=== PATIENT | female | born 1940 | race African-American/Black ===

== ENCOUNTER 2016-07-26 21:13 | Emergency (ER) | payer OTHER ==
[~2016-07-26] VITALS: Ht 165.1 cm; Wt 81.6 kg
[2016-07-26 21:15] VITALS: BP_SYST 142
[2016-07-26] MEDS ORDERED: GASTROGRAFIN 120 ML ONE (22:04)
[2016-07-26 22:31] VITALS: BP_SYST 143
== END 2016-07-26 22:31 | disposition home or self-care (01) ==
LOC: SED 21:13
DX: K94.23 Gastrostomy malfunction (principal); N28.9 Disorder of kidney and ureter, unspecified; Z88.2 Allergy status to sulfonamides; Z88.5 Allergy status to narcotic agent; Z88.8 Allergy status to other drugs, medicaments and biological substances
CPT/HCPCS: 43760; 74240; 99284; Q9963

== ENCOUNTER 2016-07-29 21:50 | Inpatient (IN) | payer OTHER ==
[~2016-07-29] VITALS: Ht 165.1 cm; Wt 76.7 kg
[2016-07-29 21:50] VITALS: BP_SYST 105
--- NOTE | 2016-07-29 21:50 | NUR ---
MD at beside examining patient.
--- NOTE | 2016-07-29 21:50 | NUR ---
Patient to ER bed 6 to gown for evaluation. Side rails up. Report given to CONNER HOFFMANN.
--- NOTE | 2016-07-29 21:50 | NUR ---
Pt brought in to ER by ambulance via gurney from [facility]. Pt Hgb 7.0. Pt is AOx1 and able to follow verbal command. Pt has dialysis shunt to [facility]. No active bleeding noted. Denies any pain or discomfort at this time. No acute distress noted. Will continue to monitor.
[2016-07-29 22:26] LABS: BASOPHILS % (AUTO) 0.1 % (0.0-2.0); EOSINOPHILS # (AUTO) 0.2 K/uL (0.0-0.4); EOSINOPHILS % (AUTO) 4.7 % (0.0-4.0); LYMPHOCYTES # (AUTO) 0.6 K/uL (1.0-5.5); LYMPHOCYTES % (AUTO) 12.8 % (20.5-51.5); MEAN CORPUSCULAR HEMOGLOBIN 28 pg (27-31); MEAN CORPUSCULAR HGB CONC 33 % (32-36); MEAN CORPUSCULAR VOLUME 85 fL (79.0-98.0); MONOCYTES # (AUTO) 0.6 K/uL (0.0-1.0); MONOCYTES % (AUTO) 13.6 % (1.7-9.3); NEUTROPHILS # (AUTO) 3.2 K/uL (1.8-7.7); NEUTROPHILS % (AUTO) 68.8 % (40.0-70.0); PLATELET COUNT (AUTO) 216 K/uL (130-430); RED BLOOD CELL COUNT(AUTO) 2.53 MIL/uL (4.2-6.2); RED CELL DISTRIBUTION WIDTH 18.7 % (9.0-15.0); WHITE BLOOD COUNT (AUTO) 4.6 K/uL (4.8-10.8)
[2016-07-29 22:30] LABS: HEMATOCRIT 21.5 % (36-48)
[2016-07-29] MEDS ORDERED: PHEN100O4 PO (22:34)
[2016-07-29] MEDS ORDERED: SENN8.8S12 GT (22:34)
[2016-07-29] MEDS ORDERED: LORA2VIA31 (22:34)
[2016-07-29] MEDS ORDERED: PHO667 GT (22:34)
[2016-07-29] MEDS ORDERED: LANS30CA56 PO (22:34)
[2016-07-29] MEDS ORDERED: LEVE500T77 PO (22:34)
[2016-07-29] MEDS ORDERED: LEVE500S PO (22:34)
[2016-07-29 22:45] LABS: CALCIUM 9.3 mg/dL (8.4-11.0); CHLORIDE 98 mmol/L (98-107); CREATININE 3.76 mg/dL (0.55-1.30); GLUCOSE 103 mg/dL (70-99); POTASSIUM 3.7 mmol/L (3.5-5.1); SODIUM SERUM 137 mmol/L (136-145); UREA NITROGEN, BLOOD 24 mg/dL (8-21)
[2016-07-29 22:48] LABS: ANION GAP < 3 (5-15); PROTHROMBIN TIME 10.8 SECS (9.5-12.5)
[2016-07-29 22:50] LABS: ALANINE AMINOTRANSFERASE 18 U/L (12-78); ALBUMIN 2.3 g/dL (3.4-4.8); ASPARTATE AMINOTRANSFERASE 27 U/L (10-37); CREATINE KINASE, TOTAL 49 U/L (26-192); SALICYLATE 2 mg/dL (3-30); TOTAL BILIRUBIN 0.3 mg/dL (0.0-1.0); TOTAL PROTEIN, SERUM 7.5 g/dL (6.4-8.3)
--- NOTE | 2016-07-29 22:50 | NUR ---
Medication reconciliation completed with information provided by Patient facility. Any prior medication reconciliation on file was reviewed and corrected.
[2016-07-29 22:53] LABS: ALCOHOL, BLOOD < 3 mg/dL (<10)
[2016-07-29 23:21] LABS: BILIRUBIN,URINE NEGATIVE (NEGATIVE); BLOOD, URINE NEGATIVE (NEGATIVE); CLARITY/URINE SL HAZY (CLEAR); COLOR,URINE YELLOW (YELLOW); GLUCOSE,URINE NEGATIVE (NEGATIVE); KETONES,URINE NEGATIVE (NEGATIVE); LEUKOCYTE ESTERASE ,URINE NEGATIVE (NEGATIVE); NITRITE, URINE NEGATIVE (NEGATIVE); PROTEIN URINE 1+ (NEGATIVE); UROBILINOGEN,URINE 0.2 (0.2-1.0)
[2016-07-29 23:39] VITALS: BP_SYST 115
--- NOTE | 2016-07-29 23:39 | NUR ---
Admission Note Received patient from ER with diagnosis of SEVERE ANEMIA. Initial Plan of Care discussed-patient verbalized understanding. Family at bedside. Oriented to room, call light, pain management and safety.
--- NOTE | 2016-07-29 23:39 | NUR ---
Initial note A/O x 0, no SOB, no chest pain, no grimacing. Skin warm to touch. IV at L hand/wrist #22, patent. One wound at L buttock. GT at ABD, dressing clean and dry. Will start GTF later. AV shunt at R upper arm. Thrills and bruits present. Blood transfusion has been ordered. Type and screen pending. +2 radial and +1 pedal pulses palpated. Call light within reach, bed at lowest position, bed alarm on, will continue to monitor patient. Addendum: 07/30/16 at 0042 by Zachary Mckeon RN Assessed GT residual, 0 ml. GFT not ready yet at this time, will give when available.
[2016-07-29 23:45] LABS: BACTERIA,URINE FEW /HPF (None Seen); MUCUS,URINE None Seen /LPF (None Seen); RBC,URINE 0-3 /HPF (0-3); WBC,URINE 0-3 /HPF (0-3)
--- NOTE | 2016-07-29 23:50 | NUR ---
Patient will be admitted to care of Dr. Steward. Admitted to Med/surg unit. Will go to room 130A. Belongings list completed. Summary report printed. Report will be given at bedside.
--- NOTE | 2016-07-30 00:30 | NUR ---
Called LAB, blood is not ready yet.
--- NOTE | 2016-07-30 00:40 | NUR ---
CONSULT; CONSULT CALLED FOR DR. MARYA MOORE I SPOKE WITH GLORIA CEDENO CONSULT ENTERED BY: DR. MONA EMERSON I CALLED [phone]
--- NOTE | 2016-07-30 02:04 | NUR ---
Rounds Sleeping in bed. No SOB, no chest pain, no grimacing. Skin warm to touch. IV at L hand/wrist. Patent. Blood transfusion not ready yet. Started GTF now. No residual at this time. HOB > 30-45 degrees. Bed at lowest position, bed alarm on, will continue to monitor patient.
[2016-07-30 03:57] VITALS: BP_SYST 105
--- NOTE | 2016-07-30 04:08 | NUR ---
Rounds Sleeping/resting in bed. No SOB, no chest pain, no grimacing. Skin warm to touch. IV at L hand/wrist, patent. Blood transfusion not ready yet. GTF ongoing. HOB > 30-45 degrees. Bed at lowest position, bed alarm on, will continue to monitor patient.
[2016-07-30 04:25] VITALS: BP_SYST 105
--- NOTE | 2016-07-30 06:25 | NUR ---
Called and spoke son (Kayode Olguin) regarding blood transfusion consent. Verbal consent obtained from son. Susannah PRIETO witness.
--- NOTE | 2016-07-30 06:46 | NUR ---
Closing note Resting in bed, no SOB, no chest pain, no grimacing. Skin warm to touch, flushed 75 ml water, 0 residual. Seizure precaution applied, fall precaution applied, aspiration precaution, applied. Will give report to incoming nurse regarding patient condition, HD, and blood transfusion. Addendum: 07/30/16 at 0655 by Zachary Mckeon RN oral care provided.
[2016-07-30 07:30] VITALS: BP_SYST 117
--- NOTE | 2016-07-30 07:30 | NUR ---
AM NOTES: Received patient alert, awake, orientex2, denies pain and discomfort. informed about the POC. vital sign stable, afebrile. iv access at left wrist #20 saline lock. mouth dry and crusty. oral care rendered. turn and reposition for comfort. g-tube infusing well, no residual noted. hob elevated to prevent aspiration. sz pad placed.call light within reach. sacral excoriation, z-guard in placed. ramona heel discoloration and dry. encourage to call when assistance needed.
[2016-07-30 07:31] LABS: BASOPHILS % (AUTO) 0.2 % (0.0-2.0); EOSINOPHILS # (AUTO) 0.3 K/uL (0.0-0.4); EOSINOPHILS % (AUTO) 5.6 % (0.0-4.0); HEMATOCRIT 22.1 % (36-48); HEMOGLOBIN 7.2 g/dL (12.0-16.0); LYMPHOCYTES # (AUTO) 0.5 K/uL (1.0-5.5); MEAN CORPUSCULAR HEMOGLOBIN 28 pg (27-31); MEAN CORPUSCULAR HGB CONC 33 % (32-36); MEAN CORPUSCULAR VOLUME 85 fL (79.0-98.0); MONOCYTES # (AUTO) 0.7 K/uL (0.0-1.0); MONOCYTES % (AUTO) 14.7 % (1.7-9.3); NEUTROPHILS % (AUTO) 67.5 % (40.0-70.0); PLATELET COUNT (AUTO) 218 K/uL (130-430); RED BLOOD CELL COUNT(AUTO) 2.61 MIL/uL (4.2-6.2); RED CELL DISTRIBUTION WIDTH 19.3 % (9.0-15.0); WHITE BLOOD COUNT (AUTO) 4.5 K/uL (4.8-10.8)
[2016-07-30] MEDS: NYSTATIN 500,000 UNITS/5 ML UDC PO SCH ×3 (09:00→21:37)
[2016-07-30] MEDS ORDERED: PHENYTOIN 100 MG/4 ML UDC (DILANTIN) PO SCH (09:00)
--- NOTE | 2016-07-30 09:05 | NUR ---
MD ROUNDS: SEEN BY DR. DUNN WITH NEW ORDER RECEIVED.
[2016-07-30] MEDS: levETIRAcetam 500 MG TABLET GT SCH (09:06)
[2016-07-30] MEDS: CALCIUM ACETATE 667 MG CAP GT SCH (09:06)
[2016-07-30] MEDS: PHENYTOIN 100 MG/4 ML UDC (DILANTIN) GT SCH ×2 (09:07→21:37)
[2016-07-30] MEDS ORDERED: ONDANSETRON HCL 4 MG/2 ML VIAL IVP PRN (09:30)
[2016-07-30] MEDS ORDERED: MORPHINE 2 MG/ML INJ. SYRINGE IVP PRN (09:30)
[2016-07-30] MEDS ORDERED: MAGNESIUM SULFATE 50 ML IV PRN (09:30)
[2016-07-30] MEDS ORDERED: LORazepam 2 MG/ML VIAL IVP PRN (09:30)
[2016-07-30] MEDS ORDERED: ZOLPIDEM TARTRATE 5 MG TABLET PO PRN (09:30)
[2016-07-30] MEDS ORDERED: POTASSIUM CHLORIDE 10 MEQ TAB.PRT.SR PO PRN (09:30)
[2016-07-30] MEDS ORDERED: DOCUSATE SODIUM 100 MG CAPSULE PO PRN (09:30)
[2016-07-30] MEDS ORDERED: ACETAMINOPHEN 325 MG TABLET PO PRN (09:30)
--- NOTE | 2016-07-30 09:46 | NUR ---
Nutrition Update Shaggy Scale 13 noted. Pt admitted for severe anemia. Diet: Novasource Renal at 50 ml/hr, Free Water Flush: 75 ML Q SHIFT via GT BMI: 28.2 kg/m2 RD to follow per nutrition care standards.
[2016-07-30 12:00] VITALS: BP_SYST 131
--- NOTE | 2016-07-30 13:30 | NUR ---
NOTES: PT SON ( MARGY ANDERS) CALLED AND INFORMED ABOUT UPDATED OF CARE. VERBALIZED UNDERSTANDING.
--- NOTE | 2016-07-30 13:59 | NUR ---
NOTES: RECEIVED CALL FROM DR. NEWTON ( WATER METER READER) BOWLING OR SKATING FRONT DESK CLERK OF . UPDATED PT STATUS. STATED WILL SEE PATIENT LATER.
[2016-07-30 16:00] VITALS: BP_SYST 130
--- NOTE | 2016-07-30 17:00 | NUR ---
notes: patient transferred to room 123B.
--- NOTE | 2016-07-30 19:04 | NUR ---
notes: blood products not ready yet. patient has antibodies. no s/s of distress. vital sign stable, afebrile.will endorsed to incoming nurse.
--- NOTE | 2016-07-30 20:34 | NUR ---
Initial note A/O x 1, no SOB, no chest pain, no grimacing. Resting in bed. Clear lung sounds, active bowel sounds. Hold GTF now for Dilantin given later. Flushed 20 ml, no residual. HOB > 30-45 degree. AV shunt at R upper arm. Thrills and bruits present. SCD in place. Seizure precaution applied. Bed alarm on, bed at lowest position, call light within reach, will continue to monitor patient.
[2016-07-30 20:38] VITALS: BP_SYST 133
--- NOTE | 2016-07-30 21:43 | NUR ---
Dilantin given, continued to hold GTF for another hour. Oral care provided with Nystatin.
--- NOTE | 2016-07-30 22:40 | NUR ---
Restarted GTF. Flushed with 20 ml water. HOB > 35-45. Bed at lowest position, bed alarm on, will continue to monitor patient.
--- NOTE | 2016-07-31 00:06 | NUR ---
Rounds Sleeping/resting in bed. No SOB, no chest pain, no grimacing. GTF ongoing. HOB > 30-[address] Seizure precaution applied. Bed alarm on, bed at lowest position, call light within reach, will continue to monitor patient.
[2016-07-31 00:08] VITALS: BP_SYST 120; BP_SYST 140
--- NOTE | 2016-07-31 00:39 | NUR ---
First blood transfusion Verified with CONNER Vizcaino. VS 137//, Temp 98.2, RR 17.
--- NOTE | 2016-07-31 00:54 | NUR ---
15 minutes VS 132/53/91, temp 98.2, RR 18. No reactions.
--- NOTE | 2016-07-31 02:16 | NUR ---
Rounds Sleeping/resting in bed, blood transfusion ongoing. No reactions at this time. GTF ongoing. HOB > 30-45 degree. No SOB, no chest pain, no grimacing. Call light within reach, bed at lowest position, bed alarm on, SCD in place, seizure precaution applied. Will continue to monitor patient.
--- NOTE | 2016-07-31 03:40 | NUR ---
Blood transfusion completed. VS 98.7, 94, 18, 97% RA, 144/71, no reactions.
[2016-07-31 04:02] VITALS: BP_SYST 144
--- NOTE | 2016-07-31 04:42 | NUR ---
SECOND BLOOD TRANSFUSION/PRE VITALS Vital signs taken within 5 minutes prior to initiation of transfusion. Vital signs: BP: 133/63, HR 92, RR 17, TEMP 98.3F, 99% O2 SAT.
--- NOTE | 2016-07-31 04:57 | NUR ---
15 minutes after blood transfusion VS 98.3, 90, 18, 145/70. 100% RA, no reactions. Bed at lowest position, bed alarm on, HOB > 30-45, seizure precaution applied. Flushed GT with 50 ml water. Patient is sleeping/resting now. Will continue to monitor patient.
--- NOTE | 2016-07-31 06:38 | NUR ---
Closing note Resting/sleeping in bed. No SOB, no chest pain, no grimacing. HOB > 30-45 degreed. Blood transfusion ongoing. No reactions noted. GTF ongoing. Bed at lowest position, bed alarm on , SCD in place, seizure precaution applied. Call light within reach, will give report to incoming nurse.
--- NOTE | 2016-07-31 07:34 | NUR ---
Turned g-tube feeding off for patient dose of dilantin at 9 am.
--- NOTE | 2016-07-31 08:15 | NUR ---
Post transfusion vital signs. Patient needs met.
[2016-07-31 08:33] VITALS: BP_SYST 164
--- NOTE | 2016-07-31 09:00 | NUR ---
Dialysis nurse present for treatment. Nurse to draw am labs per laborer/grade check.
[2016-07-31 10:12] LABS: BASOPHILS # (AUTO) 0.1 K/uL (0.0-0.2); BASOPHILS % (AUTO) 2.1 % (0.0-2.0); EOSINOPHILS # (AUTO) 0.3 K/uL (0.0-0.4); EOSINOPHILS % (AUTO) 4.5 % (0.0-4.0); HEMATOCRIT 26.4 % (36-48); HEMOGLOBIN 8.4 g/dL (12.0-16.0); LYMPHOCYTES # (AUTO) 0.7 K/uL (1.0-5.5); LYMPHOCYTES % (AUTO) 9.7 % (20.5-51.5); MEAN CORPUSCULAR HEMOGLOBIN 27 pg (27-31); MEAN CORPUSCULAR HGB CONC 32 % (32-36); MEAN CORPUSCULAR VOLUME 85 fL (79.0-98.0); MONOCYTES # (AUTO) 0.8 K/uL (0.0-1.0); MONOCYTES % (AUTO) 12.2 % (1.7-9.3); NEUTROPHILS % (AUTO) 71.5 % (40.0-70.0); PLATELET COUNT (AUTO) 211 K/uL (130-430); RED BLOOD CELL COUNT(AUTO) 3.11 MIL/uL (4.2-6.2); RED CELL DISTRIBUTION WIDTH 18.4 % (9.0-15.0); WHITE BLOOD COUNT (AUTO) 6.9 K/uL (4.8-10.8)
[2016-07-31 10:38] LABS: ANION GAP 2 (5-15); CALCIUM 9.3 mg/dL (8.4-11.0); CHLORIDE 99 mmol/L (98-107); CREATININE 5.78 mg/dL (0.55-1.30); GLUCOSE 100 mg/dL (70-99); POTASSIUM 4.3 mmol/L (3.5-5.1); SODIUM SERUM 135 mmol/L (136-145); UREA NITROGEN, BLOOD 47 mg/dL (8-21)
[2016-07-31 10:51] LABS: IRON (SERUM) 41 mcg/dL (37-145); TOTAL IRON BIND. CAPACITY 77 ug/dL (250-450)
[2016-07-31] MEDS: CALCIUM ACETATE 667 MG CAP GT SCH (11:12)
[2016-07-31] MEDS: NYSTATIN 500,000 UNITS/5 ML UDC PO SCH ×3 (11:12→21:45)
[2016-07-31] MEDS: levETIRAcetam 500 MG TABLET GT SCH (11:12)
[2016-07-31] MEDS: PHENYTOIN 100 MG/4 ML UDC (DILANTIN) GT SCH ×2 (11:15→21:45)
[2016-07-31 12:28] VITALS: BP_SYST 149; BP_SYST 99
--- NOTE | 2016-07-31 13:00 | NUR ---
Completion of dialysis. 1 liter out. Thrill and bruit present in right upper arm av shunt. Tube feeding resumed.
--- NOTE | 2016-07-31 13:53 | NUR ---
Doctor Barrett clearance for discharge received.
--- NOTE | 2016-07-31 16:00 | NUR ---
Collection of stool ob , sent to laboratory.
[2016-07-31 16:08] VITALS: BP_SYST 139
--- NOTE | 2016-07-31 19:20 | NUR ---
Handoff report given to noc nurse.
[2016-07-31 19:35] VITALS: BP_SYST 129
--- NOTE | 2016-07-31 19:35 | NUR ---
Initial Notes Pt is A/Ox1, confused. Pt noted to garbled speech. Unable to discuss plan of care due to cognitive and physical limitations, no family available at bedside. Breathing is easy and unlabored. VSS. IV intact, saline lock. Pt is on g tube feeding, g tube feeding noted to be off at this time. Will check g tube patency. Scar noted to right side of pt's forehead, dry. [facility] shunt noted with thrill and bruit present. Bilateral scd's noted in place for dvt prophylaxis. Safety precautions in place, side rails up x3 with bed in lowest, locked position, bed alarm on at all times. Call light in reach. Will continue to monitor.
--- NOTE | 2016-07-31 22:00 | NUR ---
RN NOTES: pt. awake when checked, only knows her name, pt. disoriented. noted generalized weakness. IV lock on left hand . G tube feeding, site clean with small gauze dressing.with AV shunt on rt. arm, pt. on hemodialysis.in no acute distress. covering for ELECTRON GUN ASSEMBLEROscar Guardado.
--- NOTE | 2016-07-31 22:36 | NUR ---
Hygiene care/G tube G tube noted to be clogged, at this time new nano valve placed, g tube flushed with water well once new nano valve placed. No residual noted at this time. All scheduled medications given via g tube without difficulty. G tube held for an hour for scheduled Dilantin given via g tube. Pt given total bed bath with skin care. Dressing noted to sacrum, removed. Open area to sacral cleansed with NS, and new Sacral dressing applied. Oral care given with scheduled nystatin orally with swabs, suctioned with yaunker. Pt re positioned with pillows for comfort with heels floating. New G tube bag hung with new tubing. All needs met at this time. Call light in reach. Will continue to monitor.
--- NOTE | 2016-07-31 23:50 | NUR ---
Rounds Pt is sleeping comfortably in bed with aspiration precautions in place, head of bed elevated to high fowlers. No s/s of aspiration noted. All needs met at this time. Call light in reach. Will continue to monitor.
[2016-08-01] VITALS (7 sets, daily range): BP systolic 122–142
--- NOTE | 2016-08-01 02:40 | NUR ---
Rounds Pt is sleeping safely in bed with no acute distress or sob noted. IV intact. Call light in reach. Will continue to monitor.
--- NOTE | 2016-08-01 04:39 | NUR ---
PATIENT RESTING: Patient resting quietly. No acute distress noted. Vital signs within normal range. Safety measures in place. No s/s of aspiration noted. All needs met. Call light in reach. Will continue to monitor.
[2016-08-01 06:28] LABS: ANION GAP 2 (5-15); CALCIUM 9.5 mg/dL (8.4-11.0); CHLORIDE 96 mmol/L (98-107); CREATININE 4.52 mg/dL (0.55-1.30); GLUCOSE 103 mg/dL (70-99); POTASSIUM 3.8 mmol/L (3.5-5.1); SODIUM SERUM 134 mmol/L (136-145); UREA NITROGEN, BLOOD 32 mg/dL (8-21)
--- NOTE | 2016-08-01 06:33 | NUR ---
Closing Notes Pt is awake, alert and oriented x1. No acute distress noted. No s/s of aspiration. G tube running well as ordered. IV intact. VSS. Pt re positioned for comfort. All needs met throughout shift. Will endorse care to am nurse. Call light within reach. Will continue to monitor.
[2016-08-01 06:39] LABS: BASOPHILS % (AUTO) 0.1 % (0.0-2.0); EOSINOPHILS # (AUTO) 0.3 K/uL (0.0-0.4); EOSINOPHILS % (AUTO) 4.6 % (0.0-4.0); HEMATOCRIT 28.3 % (36-48); LYMPHOCYTES # (AUTO) 0.7 K/uL (1.0-5.5); LYMPHOCYTES % (AUTO) 11.2 % (20.5-51.5); MEAN CORPUSCULAR HEMOGLOBIN 27 pg (27-31); MEAN CORPUSCULAR HGB CONC 32 % (32-36); MEAN CORPUSCULAR VOLUME 86 fL (79.0-98.0); MONOCYTES # (AUTO) 0.8 K/uL (0.0-1.0); MONOCYTES % (AUTO) 11.4 % (1.7-9.3); NEUTROPHILS # (AUTO) 4.9 K/uL (1.8-7.7); NEUTROPHILS % (AUTO) 72.7 % (40.0-70.0); PLATELET COUNT (AUTO) 209 K/uL (130-430); RED CELL DISTRIBUTION WIDTH 18.8 % (9.0-15.0); WHITE BLOOD COUNT (AUTO) 6.7 K/uL (4.8-10.8)
--- NOTE | 2016-08-01 07:50 | NUR ---
Initial Note Received pt in bed, pt is aaox1, confused, provided pt with reality orientation. Pt noted to have garbled speech. Unable to discuss plan of care due to cognitive and physical limitations, no family available at bedside. Pt has no s/s of distress or sob noted. VSS. Pt is on g tube feeding, tolerating g tube feedings as ordered, placement verified, no residual noted, flushes and patent. Scar noted to right side of pt's forehead, dry. Right upper arm shunt noted with thrill and bruit present. Bilateral scd's noted in place for dvt prophylaxis. Safety precautions in place, side rails up x3 with bed in lowest, locked position, bed alarm on at all times. Call light in reach. Will continue to monitor pt for any changes.
--- NOTE | 2016-08-01 10:00 | NUR ---
Endorsed Care Endorsed care of pt to incoming nurse, pt in stable condition, no s/s of distress or sob noted, pt has no facial grimacing noted for pain, pt in stable condition.
--- NOTE | 2016-08-01 10:20 | NUR ---
assumed care: care received sandra donaldson. patient seen ,lying on the bed. awake,alert and oriented x2. power hammer operator assisted during care and turned to sides. gtube in placed,due po crushed meds given .rosalia resumed tube feeds in an hour.padded side rails on. continue to monitor.
--- NOTE | 2016-08-01 10:43 | NUR ---
DISCHARGE PLANNING NOTE: MULTIPLE COIL WINDER faxed pt's information to [facility] (fax- [phone]/ phone- [phone]) to request for pt to return to the facility. MULTIPLE COIL WINDER to continue to follow up. Addendum: 08/01/16 at 1726 by Sommer Jensen MULTIPLE COIL WINDER M[employer]IPLE COIL WINDER called and spoke with Earle at [facility]; Earle states that pt can return to Rm. 14B. MULTIPLE COIL WINDER called [facility] ([phone]) and arranged transport for 8:30pm. MULTIPLE COIL WINDER called and spoke with pt's son, Kayode Olguin ([phone]); pt's son is aware and agreeable to transfer. MULTIPLE COIL WINDER prepared pt's packet and gave packet to pt's Nurse, Reyna. MULTIPLE COIL WINDER updated pt's Nurse regarding transfer details.
[2016-08-01] MEDS: CALCIUM ACETATE 667 MG CAP GT SCH (10:47)
[2016-08-01] MEDS: NYSTATIN 500,000 UNITS/5 ML UDC PO SCH ×2 (10:47→15:13)
[2016-08-01] MEDS: levETIRAcetam 500 MG TABLET GT SCH (10:48)
[2016-08-01] MEDS: PHENYTOIN 100 MG/4 ML UDC (DILANTIN) GT SCH (10:48)
--- NOTE | 2016-08-01 12:05 | NUR ---
rounds: stable. resting.
[2016-08-01] MEDS ORDERED: EPOETIN ALFA 10,000 UNITS/ML VIAL SUBCUT ONE (12:15)
--- NOTE | 2016-08-01 14:40 | NUR ---
rounds: sleeping during rounds.stable.
--- NOTE | 2016-08-01 15:22 | NUR ---
procrit: procrit 10,000 units subcu given as ordered.
--- NOTE | 2016-08-01 17:15 | NUR ---
WOUND EVALUATION: Late note for 1714 secondary to patient care. Wound Consult received from Dr. Steward. Thank you, Dr. Steward, for the consult. Patient received in a Marion Bed with a mattress, awake, alert, and oriented. Patient is unable to turn independently. Shaggy Score is a 19. Past Medical History: Iron Deficiency Anemia, Hypertension, Atrial-Fibrillation, End-Stage Renal Disease, Dialysis Dependent, history of Chronic Subdural Bleed, Vitamin B12 Deficiency, Anemia, and Subdural Bleed. Recent Labs: WBC is 6.7, RBC 3.30, hemoglobin 9.0, hematocrit 28.3, sodium 134, chloride 96, BUN 32, creatinine 4.52, POC glucose 103, magnesium 2.4, TIBC 77, % saturation 53, alkaline phosphatase 218, albumin 2.3. Intrinsic factors that delay wound healing: Iron deficiency anemia, atrial fibrillation, vitamin B12 deficiency, anemia, and hypoalbuminemia. Extrinsic factors that delay wound healing: Decreased mobility. Microbiology: MRSA screen and stool OB results negative. Wound Assessment: 1. Left buttock: Multiple areas of non-intact skin and erythema from IAD, present on admission. Wound beds are 100% pink tissue. No odor, no drainage. Entire area measures 8.3 cm x 6.0 cm. 2. Right buttock: Scar tissue with hardened keloid type soft tissue/scar tissue, present on admission. No odor, no drainage. Recommend: Wash involved areas with mild soap and water. Pat dry. Cover involved areas with moisture barrier cream. Cover with sacral foam dressing. Perform site care 4 times a day, and as needed for soiling. Also recommend: Encourage and assist patient as needed with repositioning side to side only every 2 hours with pillow support, and off-load pressure areas with pillows for pressure re-distribution. Offload, elevate and float bilateral heels with pillows lengthwise at all times. Perform skin care and monitor skin integrity Q shift. Use moisture barrier cream on buttocks and other moisture susceptible areas QID and as needed for soiling. Place patient on a low air-loss mattress.
--- NOTE | 2016-08-01 18:13 | NUR ---
rounds: stable. resting.
--- NOTE | 2016-08-01 18:31 | NUR ---
end of shift: stable. patient for transfer back to [facility] as ordered.will endorsed to incoming night nurse.packets prepared by brenda in the station.
--- NOTE | 2016-08-01 20:51 | NUR ---
FOLLOW UP ON CRIMINAL INTELLIGENCE ANALYST CALLED [facility] THEY SAID THEY WILL BE HERE AROUND 2200
--- NOTE | 2016-08-01 23:02 | NUR ---
PT TRANSFERRED Report given to CONNER Arshad at [facility]. Transfer packet with Transfer Orders and Medication Reconciliation form given to MIGUEL Ponce ([facility] [address]) with report. [facility] ID band removed, replaced with ID band with pt's name and . IV catheter removed, intact and dressing applied, no active bleeding. All belongings sent with patient. Patient left floor via gurney escorted by EMT in no distress.
[2016-08-02] MEDS ORDERED: EPOETIN ALFA 10,000 UNITS/ML VIAL SUBCUT SCH (17:00)
== END 2016-08-01 23:00 | DRG 682 ==
LOC: SED 21:50 → SMU 23:14
PROVIDERS: ADMIT General Practice; ATTEND General Practice
PROC: 30233N1 Transfusion of Nonautologous Red Blood Cells into Peripheral Vein, Percutaneous Approach (ICD-10-PCS; principal; 2016-07-31)
PROC: 5A1D00Z (ICD-10-PCS; 2016-07-31)
DX: I12.0 Hypertensive chronic kidney disease with stage 5 chronic kidney disease or end stage renal disease (principal); N18.6 End stage renal disease; I62.03 Nontraumatic chronic subdural hemorrhage; B37.0 Candidal stomatitis; E44.0 Moderate protein-calorie malnutrition; D64.9 Anemia, unspecified; R13.10 Dysphagia, unspecified; G40.909 Epilepsy, unspecified, not intractable, without status epilepticus; E78.5 Hyperlipidemia, unspecified; I48.2 Chronic atrial fibrillation; K21.9 Gastro-esophageal reflux disease without esophagitis; Z88.2 Allergy status to sulfonamides; Z99.2 Dependence on renal dialysis; Z88.6 Allergy status to analgesic agent; Z93.1 Gastrostomy status; Z79.899 Other long term (current) drug therapy; Z86.73 Personal history of transient ischemic attack (TIA), and cerebral infarction without residual deficits; Z68.28 Body mass index [BMI] 28.0-28.9, adult; Z78.1 Physical restraint status
CPT/HCPCS: 36415; 71010; 80048; 80053; 81000-TC; 82272; 82550-TC; 82728; 82962; 83540-TC; 83550-TC; 83735-TC; 84484; 85025; 85610-TC; 85730-TC; 86870; 86886; 86900; 86901; 86905; 86920; 87081; 90935; 93005; 99285; G0481; G0482; J0885; J7030; J7050; P9021

== ENCOUNTER 2016-09-13 19:47 | Inpatient (IN) | payer OTHER ==
[~2016-09-13] VITALS: Ht 157.5 cm; Wt 68.9 kg
[~2016-09-13 19:47] MED LIST: LANS30CA56 PO; LEVE500S PO; LEVE500T77 PO; LORA2VIA31; PHEN100O4 PO; PHO667 GT; SENN8.8S12 GT
[2016-09-13 19:50] VITALS: BP_SYST 116
[2016-09-13 21:01] LABS: BASOPHILS % (AUTO) 0.2 % (0.0-2.0); EOSINOPHILS # (AUTO) 0.2 K/uL (0.0-0.4); EOSINOPHILS % (AUTO) 1.6 % (0.0-4.0); HEMATOCRIT 36.5 % (36-48); HEMOGLOBIN 11.9 g/dL (12.0-16.0); LYMPHOCYTES % (AUTO) 8.6 % (20.5-51.5); MEAN CORPUSCULAR HEMOGLOBIN 29 pg (27-31); MEAN CORPUSCULAR HGB CONC 33 % (32-36); MEAN CORPUSCULAR VOLUME 90 fL (79.0-98.0); MONOCYTES # (AUTO) 0.3 K/uL (0.0-1.0); MONOCYTES % (AUTO) 2.6 % (1.7-9.3); NEUTROPHILS # (AUTO) 10.5 K/uL (1.8-7.7); PLATELET COUNT (AUTO) 307 K/uL (130-430); RED BLOOD CELL COUNT(AUTO) 4.07 MIL/uL (4.2-6.2); RED CELL DISTRIBUTION WIDTH 17.2 % (9.0-15.0)
[2016-09-13] MEDS ORDERED: SENN8.8S12 GT (21:39)
[2016-09-13] MEDS ORDERED: LORA2VIA31 GT (21:39)
[2016-09-13] MEDS ORDERED: [UNRECOGNIZED DRUG - CODE] PO (21:39)
[2016-09-13] MEDS ORDERED: AMI200 GT (21:39)
[2016-09-13] MEDS ORDERED: PHEN100O4 GT (21:39)
[2016-09-13] MEDS ORDERED: AMLO2.5T2 GT (21:39)
[2016-09-13] MEDS ORDERED: TOBR5DRO45 RIGHT EYE (21:39)
[2016-09-13] MEDS ORDERED: PHO667 GT (21:39)
[2016-09-13] MEDS ORDERED: LEVE500S GT (21:39)
[2016-09-13 21:51] LABS: ANION GAP 13 (5-15); CHLORIDE 92 mmol/L (98-107); CREATININE 6.88 mg/dL (0.55-1.30); GLUCOSE 121 mg/dL (70-99); POTASSIUM 3.9 mmol/L (3.5-5.1); SODIUM SERUM 133 mmol/L (136-145); UREA NITROGEN, BLOOD 57 mg/dL (8-21)
[2016-09-13 21:56] LABS: ALANINE AMINOTRANSFERASE 56 U/L (12-78); ALBUMIN 3.2 g/dL (3.4-4.8); ASPARTATE AMINOTRANSFERASE 52 U/L (10-37); TOTAL BILIRUBIN 0.5 mg/dL (0.0-1.0); TOTAL PROTEIN, SERUM 8.4 g/dL (6.4-8.3)
[2016-09-13 23:19] VITALS: BP_SYST 98
[2016-09-14 04:18] VITALS: BP_SYST 104
[2016-09-14 08:02] VITALS: BP_SYST 96
[2016-09-14] MEDS ORDERED: NACL 0.9% 1,000 ML IV SCH (09:59)
[2016-09-14] MEDS ORDERED: MORPHINE 2 MG/ML INJ. SYRINGE IVP PRN (10:00)
[2016-09-14] MEDS ORDERED: ONDANSETRON HCL 4 MG/2 ML VIAL IVP PRN (10:00)
[2016-09-14] MEDS ORDERED: ACETAMINOPHEN 325 MG TABLET PO PRN (10:00)
[2016-09-14] MEDS: CALCIUM ACETATE 667 MG CAP GT SCH ×2 (11:19→18:15)
[2016-09-14 12:18] VITALS: BP_SYST 109
[2016-09-14] MEDS ORDERED: VANCOMYCIN HCL 1 GM/NS PREMIX 250 ML IV ONE (14:00)
[2016-09-14] MEDS ORDERED: KETOROLAC TROMETHAMINE 30 MG VIAL IM PRN (14:30)
[2016-09-14] MEDS ORDERED: [UNRECOGNIZED DRUG - OTHER] PO SCH (15:00)
[2016-09-14] MEDS: NYSTATIN 500,000 UNITS/5 ML UDC GT SCH ×2 (15:42→21:09)
[2016-09-14 16:06] VITALS: BP_SYST 106
[2016-09-14 18:08] LABS: BASOPHILS # (AUTO) 0.1 K/uL (0.0-0.2); BASOPHILS % (AUTO) 1.2 % (0.0-2.0); EOSINOPHILS # (AUTO) 0.3 K/uL (0.0-0.4); EOSINOPHILS % (AUTO) 3.7 % (0.0-4.0); HEMATOCRIT 33.6 % (36-48); HEMOGLOBIN 10.8 g/dL (12.0-16.0); LYMPHOCYTES # (AUTO) 0.9 K/uL (1.0-5.5); LYMPHOCYTES % (AUTO) 11.2 % (20.5-51.5); MEAN CORPUSCULAR HEMOGLOBIN 29 pg (27-31); MEAN CORPUSCULAR HGB CONC 32 % (32-36); MEAN CORPUSCULAR VOLUME 90 fL (79.0-98.0); MONOCYTES # (AUTO) 0.4 K/uL (0.0-1.0); MONOCYTES % (AUTO) 5.2 % (1.7-9.3); NEUTROPHILS # (AUTO) 6.6 K/uL (1.8-7.7); NEUTROPHILS % (AUTO) 78.7 % (40.0-70.0); PLATELET COUNT (AUTO) 271 K/uL (130-430); RED BLOOD CELL COUNT(AUTO) 3.74 MIL/uL (4.2-6.2); RED CELL DISTRIBUTION WIDTH 17.1 % (9.0-15.0); WHITE BLOOD COUNT (AUTO) 8.3 K/uL (4.8-10.8)
[2016-09-14 18:34] LABS: ALANINE AMINOTRANSFERASE 40 U/L (12-78); ALBUMIN 2.7 g/dL (3.4-4.8); AMYLASE 129 U/L (0-100); ANION GAP 12 (5-15); ASPARTATE AMINOTRANSFERASE 40 U/L (10-37); CALCIUM 9.3 mg/dL (8.4-11.0); CHLORIDE 92 mmol/L (98-107); GLUCOSE 87 mg/dL (70-99); LIPASE 454 U/L (73-393); PHOSPHORUS 6.4 mg/dL (2.7-4.5); POTASSIUM 4.4 mmol/L (3.5-5.1); SODIUM SERUM 132 mmol/L (136-145); THYROID STIMULATING HORMONE 0.75 uIu/mL (0.34-4.82); TOTAL BILIRUBIN 0.5 mg/dL (0.0-1.0); TOTAL PROTEIN, SERUM 7.5 g/dL (6.4-8.3); UREA NITROGEN, BLOOD 67 mg/dL (8-21)
[2016-09-14 18:37] LABS: CREATININE 8.38 mg/dL (0.55-1.30)
[2016-09-14 19:00] VITALS: BP_SYST 111
[2016-09-14 20:00] VITALS: BP_SYST 111
[2016-09-14] MEDS: PHENYTOIN 100 MG/4 ML UDC (DILANTIN) GT SCH (21:09)
[2016-09-14] MEDS: DOCUSATE SODIUM 100 MG CAPSULE PO SCH (21:10)
[2016-09-15 00:36] VITALS: BP_SYST 142
[2016-09-15 03:35] VITALS: BP_SYST 146
[2016-09-15 07:55] LABS: BASOPHILS % (AUTO) 0.2 % (0.0-2.0); EOSINOPHILS # (AUTO) 0.3 K/uL (0.0-0.4); HEMATOCRIT 32.8 % (36-48); HEMOGLOBIN 10.8 g/dL (12.0-16.0); LYMPHOCYTES # (AUTO) 0.6 K/uL (1.0-5.5); LYMPHOCYTES % (AUTO) 8.2 % (20.5-51.5); MEAN CORPUSCULAR HEMOGLOBIN 30 pg (27-31); MEAN CORPUSCULAR HGB CONC 33 % (32-36); MEAN CORPUSCULAR VOLUME 90 fL (79.0-98.0); MONOCYTES # (AUTO) 0.5 K/uL (0.0-1.0); MONOCYTES % (AUTO) 7.5 % (1.7-9.3); NEUTROPHILS # (AUTO) 5.4 K/uL (1.8-7.7); NEUTROPHILS % (AUTO) 80.1 % (40.0-70.0); PLATELET COUNT (AUTO) 251 K/uL (130-430); RED BLOOD CELL COUNT(AUTO) 3.67 MIL/uL (4.2-6.2); RED CELL DISTRIBUTION WIDTH 16.9 % (9.0-15.0); WHITE BLOOD COUNT (AUTO) 6.8 K/uL (4.8-10.8)
[2016-09-15 07:58] LABS: ANION GAP 13 (5-15); CALCIUM 8.6 mg/dL (8.4-11.0); CHLORIDE 90 mmol/L (98-107); CHOLESTEROL 153 mg/dL (<200); GLUCOSE 94 mg/dL (70-99); HDL CHOLESTEROL 49 mg/dL (>55); LDL CHOLESTEROL 78 mg/dL (<100); PHENYTOIN (DILANTIN) 8.1 ug/mL (10.0-20.0); PHOSPHORUS 5.9 mg/dL (2.7-4.5); POTASSIUM 4.5 mmol/L (3.5-5.1); SODIUM SERUM 131 mmol/L (136-145); TRIGLYCERIDES 171 mg/dL (30-150); UREA NITROGEN, BLOOD 78 mg/dL (8-21)
[2016-09-15 08:05] LABS: CREATININE 9.15 mg/dL (0.55-1.30)
[2016-09-15] MEDS ORDERED: levETIRAcetam 500 MG TABLET GT SCH (09:00)
[2016-09-15] MEDS ORDERED: AMIODARONE HCL 200 MG TABLET GT SCH (09:00)
[2016-09-15] MEDS ORDERED: amLODIPine BESYLATE 5 MG TABLET GT SCH (09:00)
[2016-09-15] MEDS: CALCIUM ACETATE 667 MG CAP GT SCH ×2 (11:22→12:00)
[2016-09-15] MEDS: DOCUSATE SODIUM 100 MG CAPSULE PO SCH (11:22)
[2016-09-15] MEDS: NYSTATIN 500,000 UNITS/5 ML UDC GT SCH ×2 (11:22→16:19)
[2016-09-15] MEDS: PHENYTOIN 100 MG/4 ML UDC (DILANTIN) GT SCH (11:23)
[2016-09-15 12:09] VITALS: BP_SYST 128
[2016-09-15 13:22] VITALS: BP_SYST 126
[2016-09-15 16:41] VITALS: BP_SYST 126
[2016-09-16 09:12] LABS: HEMOGLOBIN A1C 5.5 % (4.8-5.6)
[2016-09-16 15:57] LABS: T4 (THYROXINE) 8.9 ug/dL (4.5-12.0)
== END 2016-09-15 17:15 | DRG 314 ==
LOC: SED 19:47 → STU 23:01 → SMU 09-14 14:47
PROVIDERS: ADMIT Family Medicine; ATTEND Family Medicine
PROC: 02PAX3Z Removal of Infusion Device from Heart, External Approach (ICD-10-PCS; principal; 2016-09-14)
DX: T82.868A Thrombosis due to vascular prosthetic devices, implants and grafts, initial encounter (principal); N18.6 End stage renal disease; G93.40 Encephalopathy, unspecified; J18.9 Pneumonia, unspecified organism; E46 Unspecified protein-calorie malnutrition; B37.0 Candidal stomatitis; F03.90 Unspecified dementia, unspecified severity, without behavioral disturbance, psychotic disturbance, mood disturbance, and anxiety; R13.10 Dysphagia, unspecified; I48.91 Unspecified atrial fibrillation; K21.9 Gastro-esophageal reflux disease without esophagitis; I10 Essential (primary) hypertension; F41.9 Anxiety disorder, unspecified; G40.909 Epilepsy, unspecified, not intractable, without status epilepticus; R26.81 Unsteadiness on feet; E11.22 Type 2 diabetes mellitus with diabetic chronic kidney disease; D63.1 Anemia in chronic kidney disease; Y84.1 Kidney dialysis as the cause of abnormal reaction of the patient, or of later complication, without mention of misadventure at the time of the procedure; Z88.2 Allergy status to sulfonamides; Z88.6 Allergy status to analgesic agent; Z88.8 Allergy status to other drugs, medicaments and biological substances; Z79.899 Other long term (current) drug therapy; Z79.01 Long term (current) use of anticoagulants; Z79.4 Long term (current) use of insulin; Z93.1 Gastrostomy status; Y92.89 Other specified places as the place of occurrence of the external cause; Z68.27 Body mass index [BMI] 27.0-27.9, adult
CPT/HCPCS: 36415; 71010; 80048; 80053; 80061; 80185-TC; 82150-TC; 83036; 83605; 83690-TC; 83735-TC; 83880; 84100-TC; 84436; 84439; 84443-TC; 84479; 85025; 87040-TC; 87081; 99285; J3370

== ENCOUNTER 2016-12-28 19:58 | Inpatient (IN) | payer OTHER ==
[~2016-12-28] VITALS: Ht 165.1 cm; Wt 71.7 kg
[~2016-12-28 19:58] MED LIST changes: +AMI200 GT; +AMLO2.5T2 GT; +LANS30CA56 GT; -LANS30CA56 PO; +LEVE500S GT; -LEVE500S PO; -LEVE500T77 PO; -LORA2VIA31; +LORA2VIA31 GT; +PHEN100O4 GT; -PHEN100O4 PO; +TOBR5DRO45 RIGHT EYE; +[UNRECOGNIZED DRUG - CODE] PO
[2016-12-28 20:01] VITALS: BP_SYST 148
[2016-12-28] MEDS ORDERED: prostat sf GT (20:22)
[2016-12-28] MEDS ORDERED: MIDO10TA GT (20:22)
[2016-12-28] MEDS ORDERED: SEN30 GT (20:22)
[2016-12-28] MEDS ORDERED: LORA-259 PO (20:22)
[2016-12-28 20:48] LABS: BASOPHILS % (AUTO) 0.4 % (0.0-2.0); EOSINOPHILS # (AUTO) 0.6 K/uL (0.0-0.4); EOSINOPHILS % (AUTO) 9.2 % (0.0-4.0); HEMATOCRIT 32.5 % (36-48); HEMOGLOBIN 10.3 g/dL (12.0-16.0); LYMPHOCYTES # (AUTO) 0.9 K/uL (1.0-5.5); LYMPHOCYTES % (AUTO) 14.4 % (20.5-51.5); MEAN CORPUSCULAR HEMOGLOBIN 26 pg (27-31); MEAN CORPUSCULAR HGB CONC 32 % (32-36); MEAN CORPUSCULAR VOLUME 82 fL (79.0-98.0); MONOCYTES # (AUTO) 0.6 K/uL (0.0-1.0); MONOCYTES % (AUTO) 9.1 % (1.7-9.3); NEUTROPHILS # (AUTO) 4.1 K/uL (1.8-7.7); NEUTROPHILS % (AUTO) 66.9 % (40.0-70.0); PLATELET COUNT (AUTO) 358 K/uL (130-430); RED BLOOD CELL COUNT(AUTO) 3.96 MIL/uL (4.2-6.2); RED CELL DISTRIBUTION WIDTH 16.3 % (9.0-15.0); WHITE BLOOD COUNT (AUTO) 6.2 K/uL (4.8-10.8)
[2016-12-28 20:58] LABS: ANION GAP 9 (5-15); CALCIUM 9.5 mg/dL (8.4-11.0); CHLORIDE 94 mmol/L (98-107); CREATININE 4.26 mg/dL (0.55-1.30); GLUCOSE 109 mg/dL (70-99); SODIUM SERUM 132 mmol/L (136-145); UREA NITROGEN, BLOOD 38 mg/dL (8-21)
[2016-12-28 21:03] LABS: ALANINE AMINOTRANSFERASE 25 U/L (12-78); ALBUMIN 2.8 g/dL (3.4-4.8); ASPARTATE AMINOTRANSFERASE 29 U/L (10-37); TOTAL BILIRUBIN 0.4 mg/dL (0.0-1.0)
[2016-12-28] MEDS ORDERED: POTASSIUM CHLORIDE 20 MEQ/PKT PACKET GT ONE (21:15)
[2016-12-28] MEDS ORDERED: NS 500 ML IV ONE (21:15)
[2016-12-28] MEDS ORDERED: LORazepam 2 MG/ML VIAL (FOR ER USE) IVP ONE (22:15)
[2016-12-28] MEDS ORDERED: BISACODYL 10 MG/SUPPOSITORY RC PRN (23:00)
[2016-12-28] MEDS ORDERED: SIMETHICONE 80 MG TAB.CHEW PO PRN (23:00)
[2016-12-28] MEDS ORDERED: ACETAMINOPHEN 325 MG TABLET PO PRN (23:00)
[2016-12-28] MEDS ORDERED: LORazepam 2 MG/ML VIAL IVP PRN (23:00)
[2016-12-28] MEDS ORDERED: MORPHINE 2 MG/ML INJ. SYRINGE IVP PRN (23:00)
[2016-12-28] MEDS ORDERED: ONDANSETRON HCL 4 MG/2 ML VIAL IVP PRN (23:00)
[2016-12-28] MEDS ORDERED: ZOLPIDEM TARTRATE 5 MG TABLET PO PRN (23:00)
[2016-12-28] MEDS ORDERED: HEPARIN SODIUM,PORCINE 3000 UNITS/0.6 ML BOLUS IVP PRN (23:30)
[2016-12-28] MEDS ORDERED: HEPARIN SODIUM,PORCINE 2000 UNITS/0.4 ML BOLUS IVP PRN (23:30)
[2016-12-28 23:41] LABS: FREE T4 (FREE THYROXINE) 1.1 ng/dl (0.8-1.5); PHOSPHORUS 2.6 mg/dL (2.7-4.5); THYROID STIMULATING HORMONE 2.04 uIu/mL (0.36-3.74)
[2016-12-28 23:58] VITALS: BP_SYST 149
[2016-12-29] VITALS (7 sets, daily range): BP systolic 125–156
[2016-12-29] MEDS ORDERED: HEPARIN SODIUM,PORCINE 5000 UNITS/ML VIAL IV ONE
[2016-12-29] MEDS: HEPARIN 25,000 UNITS/D5W 250ML 250 ML IV PRN ×3 (00:44→23:37)
[2016-12-29 07:55] LABS: CHOLESTEROL 140 mg/dL (<200); HDL CHOLESTEROL 53 mg/dL (>55); LDL CHOLESTEROL 80 mg/dL (<100); TRIGLYCERIDES 66 mg/dL (30-150)
[2016-12-29] MEDS: DOCUSATE SODIUM 100 MG CAPSULE PO SCH ×2 (08:37→21:01)
[2016-12-29] MEDS ORDERED: INSULIN REGULAR, HUMAN 100 UNITS/ML, 10 ML VIAL (novoLIN R) SUBCUT PRN (12:00)
[2016-12-29] MEDS ORDERED: GLUCOSE 15 GM GEL (in 37.5 GM TUBE) PO PRN ×2 (14:45)
[2016-12-29] MEDS ORDERED: DEXTROSE 50%-WATER 50 ML DISP.SYRIN IVP PRN ×2 (14:45)
[2016-12-29] MEDS: PHENYTOIN 100 MG/4 ML UDC (DILANTIN) GT SCH (21:01)
[2016-12-30] VITALS (8 sets, daily range): BP systolic 129–154
[2016-12-30 06:55] LABS: ANION GAP 8 (5-15); CALCIUM 9.1 mg/dL (8.4-11.0); CHLORIDE 97 mmol/L (98-107); GLUCOSE 102 mg/dL (70-99); POTASSIUM 3.4 mmol/L (3.5-5.1); SODIUM SERUM 135 mmol/L (136-145); UREA NITROGEN, BLOOD 61 mg/dL (8-21)
[2016-12-30 07:05] LABS: PHOSPHORUS 3.3 mg/dL (2.7-4.5)
[2016-12-30 08:23] LABS: BASOPHILS % (AUTO) 0.2 % (0.0-2.0); EOSINOPHILS # (AUTO) 0.6 K/uL (0.0-0.4); EOSINOPHILS % (AUTO) 12.6 % (0.0-4.0); HEMATOCRIT 29.4 % (36-48); HEMOGLOBIN 8.9 g/dL (12.0-16.0); LYMPHOCYTES # (AUTO) 0.8 K/uL (1.0-5.5); LYMPHOCYTES % (AUTO) 17.3 % (20.5-51.5); MEAN CORPUSCULAR HEMOGLOBIN 25 pg (27-31); MEAN CORPUSCULAR HGB CONC 30 % (32-36); MEAN CORPUSCULAR VOLUME 83 fL (79.0-98.0); MONOCYTES # (AUTO) 0.4 K/uL (0.0-1.0); MONOCYTES % (AUTO) 8.5 % (1.7-9.3); NEUTROPHILS # (AUTO) 2.6 K/uL (1.8-7.7); NEUTROPHILS % (AUTO) 61.4 % (40.0-70.0); PLATELET COUNT (AUTO) 342 K/uL (130-430); RED BLOOD CELL COUNT(AUTO) 3.53 MIL/uL (4.2-6.2); RED CELL DISTRIBUTION WIDTH 16.3 % (9.0-15.0); WHITE BLOOD COUNT (AUTO) 4.4 K/uL (4.8-10.8)
[2016-12-30] MEDS ORDERED: NON-FORMULARY MEDICATION (Lansoprazole 30 MG) GT SCH (09:00)
[2016-12-30] MEDS: PHENYTOIN 100 MG/4 ML UDC (DILANTIN) GT SCH (09:09)
[2016-12-30] MEDS: CINACALCET HCL 30 MG TABLET GT SCH (09:10)
[2016-12-30] MEDS: DOCUSATE SODIUM 100 MG CAPSULE PO SCH (09:10)
[2016-12-30] MEDS: AMIODARONE HCL 200 MG TABLET GT SCH (09:10)
[2016-12-30] MEDS: levETIRAcetam 500 MG TABLET GT SCH (09:10)
[2016-12-30] MEDS: amLODIPine BESYLATE 5 MG TABLET GT SCH (09:11)
[2016-12-30] MEDS ORDERED: HEPARIN SODIUM,PORCINE 5000 UNITS/ML VIAL SUBCUT ONE (11:31)
[2016-12-30] MEDS ORDERED: MIDAZOLAM HCL 5 MG/5 ML VIAL IVP ONE ×2 (11:31)
[2016-12-30] MEDS ORDERED: CEFAZOLIN 1 GM IVPB PREMIX 50 ML IV ONE (11:31)
[2016-12-30] MEDS ORDERED: KETAMINE HCL 500 MG/10 ML VIAL ONE (11:31)
[2016-12-30] MEDS ORDERED: NS 500 ML BAG IV ONE (11:31)
[2016-12-30] MEDS ORDERED: LIDOCAINE/EPI 1% 1:100000 20 ML VIAL INJ ONE (11:31)
[2016-12-30] MEDS ORDERED: THROMBIN (BOVINE) 5000 UNITS/ VIAL TP ONE (11:31)
[2016-12-30] MEDS ORDERED: GELATIN SPONGE 12 X 7 (GELFOAM) TP ONE (11:31)
[2016-12-30] MEDS ORDERED: LR 1,000 ML IV ONE (12:51)
[2016-12-30] MEDS ORDERED: ONDANSETRON HCL 4 MG/2 ML VIAL IVP PRN ×2 (13:00)
[2016-12-30] MEDS ORDERED: ePHEDrine sulfate 50 MG/ML VIAL IVP PRN (13:00)
[2016-12-30] MEDS ORDERED: DIPHENHYDRAMINE INJ 50 MG/ML VIAL IVP PRN (13:00)
[2016-12-30] MEDS ORDERED: fentaNYL CITRATE/PF 100 MCG/2 ML AMP IVP PRN (13:00)
[2016-12-30] MEDS ORDERED: NALOXONE HCL 0.4 MG/ML AMP (NARCAN) IVP PRN (13:00)
[2016-12-30 20:20] LABS: HEMOGLOBIN A1C 4.7 % (4.8-5.6)
[2016-12-31] MEDS: PHENYTOIN 100 MG/4 ML UDC (DILANTIN) GT SCH ×2 (00:03→09:20)
[2016-12-31] MEDS: DOCUSATE SODIUM 100 MG CAPSULE PO SCH ×2 (00:04→09:27)
[2016-12-31 00:59] VITALS: BP_SYST 126
[2016-12-31 03:38] VITALS: BP_SYST 120
[2016-12-31 08:00] VITALS: BP_SYST 125
[2016-12-31 08:24] LABS: ANION GAP 12 (5-15); CALCIUM 9.1 mg/dL (8.4-11.0); CHLORIDE 98 mmol/L (98-107); CREATININE 5.12 mg/dL (0.55-1.30); GLUCOSE 119 mg/dL (70-99); POTASSIUM 4.2 mmol/L (3.5-5.1); SODIUM SERUM 138 mmol/L (136-145); UREA NITROGEN, BLOOD 53 mg/dL (8-21)
[2016-12-31 08:57] LABS: BASOPHILS % (AUTO) 0.3 % (0.0-2.0); EOSINOPHILS # (AUTO) 0.5 K/uL (0.0-0.4); HEMATOCRIT 28.8 % (36-48); HEMOGLOBIN 9.2 g/dL (12.0-16.0); LYMPHOCYTES # (AUTO) 0.6 K/uL (1.0-5.5); LYMPHOCYTES % (AUTO) 11.8 % (20.5-51.5); MEAN CORPUSCULAR HEMOGLOBIN 26 pg (27-31); MEAN CORPUSCULAR HGB CONC 32 % (32-36); MEAN CORPUSCULAR VOLUME 83 fL (79.0-98.0); MONOCYTES # (AUTO) 0.4 K/uL (0.0-1.0); MONOCYTES % (AUTO) 8.9 % (1.7-9.3); NEUTROPHILS # (AUTO) 3.4 K/uL (1.8-7.7); PLATELET COUNT (AUTO) 336 K/uL (130-430); RED BLOOD CELL COUNT(AUTO) 3.48 MIL/uL (4.2-6.2); RED CELL DISTRIBUTION WIDTH 15.7 % (9.0-15.0); WHITE BLOOD COUNT (AUTO) 4.9 K/uL (4.8-10.8)
[2016-12-31] MEDS: CINACALCET HCL 30 MG TABLET GT SCH (09:19)
[2016-12-31] MEDS: levETIRAcetam 500 MG TABLET GT SCH (09:20)
[2016-12-31] MEDS: AMIODARONE HCL 200 MG TABLET GT SCH (09:20)
[2016-12-31] MEDS: amLODIPine BESYLATE 5 MG TABLET GT SCH (09:21)
[2016-12-31 12:39] VITALS: BP_SYST 115
[2016-12-31 12:47] VITALS: BP_SYST 115
[2016-12-31 15:45] VITALS: BP_SYST 119
== END 2016-12-31 15:50 | DRG 314 ==
LOC: SED 19:58 → STU 22:36
PROVIDERS: ADMIT Family Medicine; ATTEND Family Medicine
PROC: 05H533Z Insertion of Infusion Device into Right Subclavian Vein, Percutaneous Approach (ICD-10-PCS; 2016-12-30)
PROC: B5161ZA Fluoroscopy of Right Subclavian Vein using Low Osmolar Contrast, Guidance (ICD-10-PCS; 2016-12-30)
PROC: 5A1D70Z Performance of Urinary Filtration, Intermittent, Less than 6 Hours Per Day (ICD-10-PCS; principal; 2016-12-30 13:00)
DX: T82.41XA Breakdown (mechanical) of vascular dialysis catheter, initial encounter (principal); E43 Unspecified severe protein-calorie malnutrition; I12.0 Hypertensive chronic kidney disease with stage 5 chronic kidney disease or end stage renal disease; G93.41 Metabolic encephalopathy; N18.6 End stage renal disease; D63.8 Anemia in other chronic diseases classified elsewhere; E11.22 Type 2 diabetes mellitus with diabetic chronic kidney disease; F03.90 Unspecified dementia, unspecified severity, without behavioral disturbance, psychotic disturbance, mood disturbance, and anxiety; G40.909 Epilepsy, unspecified, not intractable, without status epilepticus; K59.00 Constipation, unspecified; R13.10 Dysphagia, unspecified; R26.81 Unsteadiness on feet; Y83.8 Other surgical procedures as the cause of abnormal reaction of the patient, or of later complication, without mention of misadventure at the time of the procedure; F41.9 Anxiety disorder, unspecified; Z79.899 Other long term (current) drug therapy; Y92.89 Other specified places as the place of occurrence of the external cause; Z99.2 Dependence on renal dialysis; Z88.2 Allergy status to sulfonamides; Z88.6 Allergy status to analgesic agent; Z88.5 Allergy status to narcotic agent; Z88.8 Allergy status to other drugs, medicaments and biological substances; Z68.26 Body mass index [BMI] 26.0-26.9, adult
CPT/HCPCS: 36415; 71010; 76000; 80048; 80053; 80061; 82150-TC; 82962; 83036; 83690-TC; 83735-TC; 83880; 84100-TC; 84436; 84439; 84443-TC; 84479; 85025; 85379; 85730-TC; 87081; 90935; 93005; 93971; 96361; 96374; 99285; C1750; C1894; G0365; J0690; J1200; J1644; J1815; J2060; J2250; J7030; J7040